=== PATIENT | male | born 1985 | race African-American/Black ===

== ENCOUNTER 2019-01-26 14:31 | Emergency (ER) | payer SELFPAY ==
[2019-01-26] MEDS ORDERED: OXYCODONE-ACETAMINOPHEN 5-325 MG TABLET PO ONE (15:49)
--- NOTE | 2019-01-26 15:51 | ER Document Report ---
ED Medical Screen (RME) - General Chief Complaint: Finger Injury Stated Complaint: FINGER LACERATION Time Seen by Provider: 01/26/19 15:49 Mode of Arrival: Ambulatory Information source: Patient Notes: 33-year-old male presents to ED for crest right middle finger with nail injury when he slammed his finger in a sliding glass door. There is a large laceration. He states his last tetanus was in 2014 he has been treated with Percocet in the pit area. I have greeted and performed a rapid initial assessment of this patient. A comprehensive ED assessment and evaluation of the patient, analysis of test results and completion of medical decision making process will be conducted by an additional ED providers. Dictation of this chart was performed using voice recognition software; therefore, there may be some unintended grammatical errors. TRAVEL OUTSIDE OF THE [place] IN LAST 30 DAYS: No - Related Data Allergies/Adverse Reactions: No Known Allergies Allergy (Unverified 07/30/15 17:10) Past Medical History Past Surgical History: Reports: Hx Orthopedic Surgery - left knee - Immunizations Hx Diphtheria, Pertussis, Tetanus Vaccination: Yes Physical Exam - Vital signs Vitals: Temp Pulse Resp BP Pulse Ox 99.2 F 60 16 140/99 H 99 01/26/19 14:44 01/26/19 14:44 01/26/19 14:44 01/26/19 14:44 01/26/19 14:44 Course - Vital Signs Vital signs: Temp Pulse Resp BP Pulse Ox 99.2 F 60 16 140/99 H 99 01/26/19 14:44 01/26/19 14:44 01/26/19 14:44 01/26/19 14:44 01/26/19 14:44
--- NOTE | 2019-01-26 16:19 | RADIOLOGY REPORT (SQ) ---
EXAM DESCRIPTION: FINGER RIGHT COMPLETED DATE/TIME: 01/26/2019 4:03 pm REASON FOR STUDY: right middle finger crushed COMPARISON: None. NUMBER OF VIEWS: Three views. TECHNIQUE: AP, lateral, and oblique images acquired of the right third finger. LIMITATIONS: None. FINDINGS: MINERALIZATION: Normal. BONES: There is an oblique fracture cross the terminal tuft of the 3rd distal phalanx. SOFT TISSUES: No soft tissue swelling. No foreign body. OTHER: No other significant finding. IMPRESSION: Fracture of the terminal tuft of the 3rd distal phalanx. COMMENT: SITE OF TRAUMA/COMPLAINT MARKED/STAMP COMPLETED: Yes TECHNICAL DOCUMENTATION: JOB ID: [id number] [employer]- All Rights Reserved Reading location - IP/workstation name: [email or web address]
[2019-01-26] MEDS ORDERED: LIDOCAINE 1% INJ-PF (10 MG/ML) 30 ML SDV INJ ONE (18:11)
--- NOTE | 2019-01-26 18:43 | ER Document Report ---
ED Hand/Wrist Injury - General Chief Complaint: Finger Injury Stated Complaint: FINGER LACERATION Time Seen by Provider: 01/26/19 15:49 Primary Care Provider: [facility] [Provider Group] - Follow up as needed Mode of Arrival: Ambulatory Information source: Patient Notes: 33-year-old male presented to ED for complaint of crush injury to the right middle finger. He states his finger was slammed in a sliding glass door. There is a large laceration and injury to the nail. He states his last tetanus shot was in 2014. He was treated with Percocet earlier in the pit area. Patient is alert oriented respirations regular and unlabored speaking in full sentences walks with a even steady gait. TRAVEL OUTSIDE OF THE [place] IN LAST 30 DAYS: No - HPI Injury to: Middle finger - Right Onset: Just prior to arrival Where: Home, Indoors Timing: Still present Quality of pain: Sharp, Throbbing Severity: Severe Pain Level: 2 - Now first came in Context: Crush, Laceration - Related Data Allergies/Adverse Reactions: No Known Allergies Allergy (Unverified 07/30/15 17:10) Past Medical History - General Information source: Patient - Social History Smoking Status: Current Every Day Smoker Cigarette use (# per day): Yes - 4 cigarettes a day Chew tobacco use (# tins/day): No Smoking Education Provided: Yes - 4 minutes Frequency of alcohol use: None Drug Abuse: None Occupation: Machine Feed Operator Family History: Reviewed & Not Pertinent Patient has suicidal ideation: No Patient has homicidal ideation: No - Past Medical History Cardiac Medical History: Reports: None Pulmonary Medical History: Reports: None EENT Medical History: Reports: None Neurological Medical History: Reports: None Renal/ Medical History: Reports: None Malignancy Medical History: Reports None GI Medical History: Reports: None Musculoskeletal Medical History: Reports Hx Musculoskeletal Deformity, Reports Hx Musculoskeletal Trauma Skin Medical History: Reports None Psychiatric Medical History: Reports: None Traumatic Medical History: Reports: Hx Fractures Infectious Medical History: Reports: None Past Surgical History: Reports: Hx Orthopedic Surgery - left knee - Immunizations Hx Diphtheria, Pertussis, Tetanus Vaccination: Yes Review of Systems - Review of Systems Constitutional: No symptoms reported EENT: No symptoms reported Cardiovascular: No symptoms reported Respiratory: No symptoms reported Gastrointestinal: No symptoms reported Genitourinary: No symptoms reported Male Genitourinary: No symptoms reported Musculoskeletal: Other - Crush injury right middle finger Skin: Other - Laceration crush injury right middle finger Hematologic/Lymphatic: No symptoms reported Neurological/Psychological: No symptoms reported -: Yes All other systems reviewed and negative Physical Exam - Vital signs Vitals: Temp Pulse Resp BP Pulse Ox 99.2 F 60 16 140/99 H 99 01/26/19 14:44 01/26/19 14:44 01/26/19 14:44 01/26/19 14:44 01/26/19 14:44 Interpretation: Normal - General General appearance: Appears well, Alert - HEENT Head: Normocephalic, Atraumatic Eyes: Normal Pupils: PERRL - Respiratory Respiratory status: No respiratory distress Chest status: Nontender Breath sounds: Normal Chest palpation: Normal - Cardiovascular Rhythm: Regular Heart sounds: Normal auscultation Murmur: No - Abdominal Inspection: Normal Distension: No distension Bowel sounds: Normal Tenderness: Nontender Organomegaly: No organomegaly - Back Back: Normal, Nontender - Extremities General upper extremity: Normal ROM, Normal temperature General lower extremity: Normal inspection, Nontender, Normal color, Normal ROM, Normal temperature, Normal weight bearing. No: Otilia's sign Hand: Tender, Laceration, Nail injury, No evidence of human bite, No evidence of FB, Swelling, Other - Open tuft fracture right third finger - Neurological Neuro grossly intact: Yes Cognition: Normal Orientation: AAOx4 Nic Coma Scale Eye Opening: Spontaneous [place] Coma Scale Verbal: Oriented Nic Coma Scale Motor: Obeys Commands [place] Coma Scale Total: 15 Speech: Normal Motor strength normal: LUE, RUE, LLE, RLE Sensory: Normal - Psychological Associated symptoms: Normal affect, Normal mood - Skin Skin Temperature: Warm Skin Moisture: Dry Skin Color: Normal Course - Re-evaluation Re-evalutation: 01/26/19 19:10 Patient has a open tuft fracture that was well alert irrigated and then closed with 4-0 sutures. One suture was through the nail. Xeroform bacitracin Telfa and gauze dressing applied and then finger splint. Patient has been instructed to follow-up with his hand surgeon as this is an open tuft fracture on the middle finger of his dominant hand. Patient was started on Augmentin and treated with Percocet in the emergency room he will be sent home with a prescription for 2 more Percocet as this will drop tonight. Patient has been instructed to keep his hand elevated above his heart at all times and not to get his hand wet at all for 24 hours and did not to put it in any standing water. He was also instructed please do not change his 7-month-old daughter's diapers until this is healed. 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 until this is healed - Vital Signs Vital signs: Temp Pulse Resp BP Pulse Ox 98.3 F 59 L 18 138/94 H 100 01/26/19 19:12 01/26/19 19:12 01/26/19 19:12 01/26/19 19:12 01/26/19 19:12 - Diagnostic Test Radiology reviewed: Image reviewed, Reports reviewed Procedures - Immobilization Right Finger 3rd digit Time completed: 19:09 Immobilizer type: Finger splint (Static) Performed by: PCT Post-Proc Neuro Vasc Exam: Other - Open tuft fracture Alignment checked and good: No - Open tuft fracture - Laceration/Wound Repair Right Finger 3rd digit Time completed: 19:08 Wound length (cm): 4 Wound's Depth, Shape: Irregular, Other - Tuft fracture open Laceration pre-procedure: Sterile PPE donned, Sterile drapes applied, Shur-Clens applied Anesthetic type: 1% Lidocaine Volume Anesthetic (mLs): 7 - Digital block and local Wound explored: Clean, Contaminated Irrigated w/ Saline (mLs): 400 Wound Repaired With: Sutures Suture Size/Type: Ethilon Number of Sutures: 7 - Through the nail Layer Closure?: No Post-procedure wound care: Sterile dressing applied Post-procedure NV exam normal: Yes Complications: Yes - Open tuft fracture Discharge - Discharge Clinical Impression: Open tuft fracture right third finger Condition: Stable Disposition: HOME, SELF-CARE Instructions: Family Physicians / Practices Additional Instructions: Tuft Fracture of the Finger The tip of your finger is broken (beneath the finger nail). While painful, this type of fracture is not serious. You can expect the bone to heal within three to four weeks. Elevating and ice packing the finger will help greatly in reducing pain and swelling. You will probably need a protective splint, initially. When you can push firmly on the tip of your finger without any pain, you no longer need to use the splint. If the fingernail becomes black and painful, bleeding has occurred under the nail. This may need to be drained. Sometimes the nail must be removed. Occasionally, the tissue under the nail must be sewn back together. Call the doctor or return for examination if pain becomes severe, or if numbness or severe discoloration occurs. Hand Laceration A laceration on the hand can present special problems. It may be difficult to keep the wound dry. Motion of the fingers can disturb the healing edges. Your work may involve exposure to damaging chemicals or water. Keep the wound clean and dry. If you can't keep the cut dry, undisturbed, and free of chemical exposure, please discuss this with the doctor. If any water or chemical gets onto the dressing, remove it, blot the wound dry, then apply a fresh bandage. Dressings should be changed every day. If you feel the stitches pulling as you move the hand, a splint or other form of protection is needed. If any signs of infection occur (swelling, redness, increasing tenderness, red streaks, tender lumps in the armpit, or fever), see the doctor immediately. Augmentin Augmentin is a mixture of amoxicillin and clavulanate. Amoxicillin is a member of the penicillin family. It covers the germs likely to cause ear, bronchial, and urinary infections better than plain penicillin. The addition of clavulanate allows it to cover staph infections of the skin, as well as resistant cases of ear and sinus infections. Your physician has chosen Augmentin for you because of the special nature of your situation. Augmentin is best taken with meals. Nausea after taking the medication is rare, but can occur. Diarrhea can occur, particularly in small children. Vaginal yeast infections, and oral thrush in infants are also common. Contact your physician if these problems occur. Allergy to penicillins is common. If you have had an allergic reaction to any drug of the penicillin family, you should never take any other penicillin. Notify your doctor at once if you develop hives, shortness of breath, swelling, or faintness. Elevate the Injury Because of the nature of your injury, elevation will be helpful to reduce swelling. This also reduces infection risk in wounds. Keep the injury up above the level of your heart for at least the next 48 hours (or longer if the physician recommends it). Oral Narcotic Medication You have been given a prescription for pain control. This medication is a narcotic. It's best taken with food, as nausea can result if taken on an empty stomach. Don't operate machinery or drive within six hours of taking this medication. Do not combine this medicine with alcohol, or with any medication which can cause sedation (such as cold tablets or sleeping pills) unless you get permission from the physician. Narcotics tend to cause constipation. If possible, drink plenty of fluids and eat a diet high in fiber and fruits. FOLLOW-UP CARE: If you have been referred to a physician for follow-up care, call the physicians office for an appointment as you were instructed or within the next two days. If you experience worsening or a significant change in your symptoms, notify the physician immediately or return to the Emergency Department at any time for re-evaluation. Prescriptions: Oxycodone HCl/Acetaminophen [Percocet 5-325 mg Tablet] 1 tab PO Q6HP PRN #5 tablet PRN Reason: Amox Tr/Potassium Clavulanate [Augmentin 875-125 Tablet] 1 tab PO BID 10 Days tablet Forms: Elevated Blood Pressure, Smoking Cessation Education, Return to Work Referrals: [facility] [Provider Group] - Follow up as needed
[2019-01-26] MEDS ORDERED: AMOXICILLIN TR/POT CLAVULANATE 500-125 MG TAB PO ONE (19:06)
[2019-01-26 19:13] VITALS: BP 138/94
== END 2019-01-26 19:21 | disposition home or self-care (01) ==
LOC: ER 14:31
DX: S62.633B Displaced fracture of distal phalanx of left middle finger, initial encounter for open fracture (principal); W23.1XXA Caught, crushed, jammed, or pinched between stationary objects, initial encounter; Y92.009 Unspecified place in unspecified non-institutional (private) residence as the place of occurrence of the external cause; F17.210 Nicotine dependence, cigarettes, uncomplicated
CPT/HCPCS: 99406; 73140; 99283; 12002; J3490